=== PATIENT | female | born 1980 | race Caucasian/White ===

== ENCOUNTER 2018-05-21 12:07 | Outpatient (REF) | payer MEDICAID, SELFPAY ==
--- NOTE | 2018-05-21 11:45 | PAPFT_PTH ---
PATIENT: Jaquelin Castanon LOC: [facility] U#:[id number] AGE/SX: 37/F ROOM: RE05/21/[address]: Nahomy Azevedo APRN : 1980 BED: DIS: 05/21/2018 SPEC #: [id number] RECD: 05/22/18 13:00 STATUS: ROSEMARY REShira #: [id number] ALISON: 05/21/18 11:[address]: Nahomy Azevedo DEPT: [facility] Cytology RECD BY: Aurelia Doe Tissues: 1 - CX/ENDOCX FOR PAP SMEARS Procedures: PAP THIN PREP/UVM Screening HPV DNA PROBE Comments: [id number]
== END 2018-05-21 12:27 ==
LOC: LBN 12:07
PROVIDERS: PCP Nurse Practitioner Family; Visit Provider Nurse Practitioner Family
DX: Z12.4 Encounter for screening for malignant neoplasm of cervix (principal); Z11.51 Encounter for screening for human papillomavirus (HPV)
CPT/HCPCS: 88142; 87624

== ENCOUNTER 2018-06-04 01:35 | Outpatient (CLI) | payer MEDICAID, SELFPAY ==
[2018-06-04 09:15] LABS: Abs Immature Grans 0.01 k/cumm (0.0-0.09); Absolute Basophil Count 0.02 k/cumm (0.0-0.2); Absolute Eosinophil Count 0.11 k/cumm (0.0-0.7); Absolute Lymphocyte Count 2.65 k/cumm (1.2-3.4); Absolute Monocyte Count 0.51 k/cumm (0.11-0.7); Absolute Neutrophil Count 5.56 k/cumm (1.2-6.7); Basophils % 0.2; Eosinophils % 1.2; HCT 38.9 % (36.0-46.0); HGB 12.9 g/dL (12.0-15.5); Immature Grans % 0.1; Lymphocytes % 29.9; Mean Corp. HGB Concentration 33.2 g/dL (32.0-36.0); Mean Corpuscular Hemoglobin 30.3 pg (27.0-33.0); Mean Corpuscular Volume 91.3 fL (80-95); Mean Platelet Volume 11.3 fL (8.0-11.0); Monocytes % 5.8; Neutrophils % 62.8; Platelet Count 170 x1000/uL (130-400); RBC 4.26 m/cumm (4.00-5.20); RBC Distribution Width 13.2 % (11.7-14.6); White Blood Cell Count 8.86 k/cumm (4.4-10.8)
[2018-06-04 09:50] LABS: ALT 26 U/L (12-78); AST 14 U/L (15-37); Albumin 4.1 g/dL (3.4-5.0); Alkaline Phosphatase 62 U/L (46-116); Anion Gap 12.3 mmol/L (3-11); BUN 20 mg/dL (7-18); Bilirubin, Total 0.4 mg/dL (0.2-1.0); CO2 25.7 mmol/L (21.0-32.0); CREATININE 1.04 mg/dL (0.55-1.02); Chloride 103 mmol/L (98-107); Cholesterol 173 mg/dL (50-200); Glucose 114 mg/dL (70-100); HDL Cholesterol 41 mg/dL (40-60); LDL CHOLESTEROL 99 mg/dL (<100); Potassium 4.2 mmol/L (3.5-5.1); Sodium 141 mmol/L (136-145); TSH (W/Ref FT4) 1.37 uIU/mL (0.358-3.74); Total Protein 7.7 g/dL (6.4-8.2); Triglyceride 156 mg/dL (30-150)
== END 2018-06-04 01:55 ==
PROVIDERS: PCP Nurse Practitioner Family; Visit Provider Nurse Practitioner Family
DX: R53.83 Other fatigue (principal); Z13.220 Encounter for screening for lipoid disorders; Z13.1 Encounter for screening for diabetes mellitus; Z86.32 Personal history of gestational diabetes
CPT/HCPCS: 36415; 80053; 80061; 83721; 83036; 84443; 85025

== ENCOUNTER 2018-06-05 00:54 | Outpatient (CLI) | payer MEDICAID, SELFPAY ==
--- NOTE | 2018-06-05 13:52 | DI.COMBO_ITS ---
SYMPTOMS/DIAGNOSIS: RIGHT BREAST LUMP AT 6 O'CLOCK, H/O AUGMENTATION, N63.10 MAMMOGRAM AND RIGHT BREAST ULTRASOUND: Mammograms were interpreted according to the usual protocol including computer analysis with CAD system, tomosynthesis and C view imaging. Mammogram and right breast ultrasound are interpreted in conjunction. There are bilateral mammary implants and routine views and implant-displaced views were obtained. The breasts are of moderate density. No dominant mass or clumped microcalcification is seen. An area of questionable palpable abnormality of the supraareolar portion of the right breast was evaluated, as well as additional scanning of all four quadrants ultrasonographically. No mass or cyst identified. CONCLUSION: No specific evidence of malignancy at this time. Routine screening examinations are suggested at yearly intervals beginning at age 40 unless there is breast symptomatology in the intervening period. Category 1, breast density category B. MQSA ASSESSMENT OF FINDINGS: Negative. Category 1. Patient will receive a letter notifying them of these results. BI-RADS category B. There are scattered areas of fibroglandular density.
== END 2018-06-05 01:14 ==
PROVIDERS: PCP Nurse Practitioner Family; Visit Provider Nurse Practitioner Family
DX: N63.13 Unspecified lump in the right breast, lower outer quadrant (principal); Z98.82 Breast implant status
CPT/HCPCS: 76642; 77062; 77066; G0279

== ENCOUNTER 2018-07-25 12:08 | Outpatient (CLI) | payer MEDICAID, SELFPAY ==
--- NOTE | 2018-07-25 12:30 | DI.RAD_ITS ---
SYMPTOM/DIAGNOSIS: COUGH, LONG TIME SMOKER, NICOTINE DEPENDENT, F17.200, FAMILY H/O CANCERS PA AND LATERAL CHEST: The heart is normal in size. The lungs are clear. The mediastinal structures and pleura appear intact. CONCLUSION: Normal chest.
== END 2018-07-25 12:28 ==
PROVIDERS: PCP Nurse Practitioner Family; Visit Provider Student in an Organized Health Care Education/Training Program
DX: F17.200 Nicotine dependence, unspecified, uncomplicated (principal); R05 Cough; Z80.9 Family history of malignant neoplasm, unspecified
CPT/HCPCS: 71046

== ENCOUNTER 2019-05-06 16:49 | Outpatient (REF) | payer MEDICAID, SELFPAY ==
[2019-05-08 12:26] LABS: Chlamydia Result Negative (Negative); GC Result Negative (Negative)
== END 2019-05-06 17:09 ==
LOC: LBN 16:49
PROVIDERS: PCP Student in an Organized Health Care Education/Training Program; Visit Provider Nurse Practitioner Adult Health
DX: N89.8 Other specified noninflammatory disorders of vagina (principal); Z11.3 Encounter for screening for infections with a predominantly sexual mode of transmission
CPT/HCPCS: 87491; 87591; 87480; 87510; 87660

== ENCOUNTER 2019-10-07 12:06 | Outpatient (CLI) | payer MEDICAID, SELFPAY ==
[2019-10-09 18:14] LABS: SARS-CoV-2 RNA Undetected (Undetected); SARS-CoV-2 Specimen Source Nasopharynx
== END 2019-10-07 12:26 ==
PROVIDERS: PCP Student in an Organized Health Care Education/Training Program; Visit Provider Family Medicine
DX: R19.7 Diarrhea, unspecified (principal)
CPT/HCPCS: U0003

== ENCOUNTER 2020-01-09 08:46 | Outpatient (CLI) | payer MEDICAID, SELFPAY ==
[2020-01-14 03:19] LABS: Patient Race White; SARS-CoV-2 RNA Undetected (Undetected); SARS-CoV-2 Specimen Source Nasal
== END 2020-01-09 09:06 ==
PROVIDERS: PCP Student in an Organized Health Care Education/Training Program; Visit Provider Student in an Organized Health Care Education/Training Program
DX: R19.7 Diarrhea, unspecified (principal)
CPT/HCPCS: U0003

== ENCOUNTER 2020-02-03 08:47 | Outpatient (CLI) | payer MEDICAID, SELFPAY ==
[2020-02-04 18:05] LABS: Patient Race White; SARS-CoV-2 RNA Undetected (Undetected); SARS-CoV-2 Specimen Source Nasal
== END 2020-02-03 09:07 ==
PROVIDERS: PCP Student in an Organized Health Care Education/Training Program; Visit Provider Student in an Organized Health Care Education/Training Program
DX: Z11.59 Encounter for screening for other viral diseases (principal)
CPT/HCPCS: U0003

== ENCOUNTER 2020-04-07 08:30 | Outpatient (CLI) | payer MEDICAID, SELFPAY ==
[2020-04-08 12:55] LABS: COVID-19 RT-PCR UVMMC Result Negative (Negative)
== END 2020-04-07 08:50 ==
PROVIDERS: PCP Student in an Organized Health Care Education/Training Program; Visit Provider Student in an Organized Health Care Education/Training Program
DX: Z20.822 Contact with and (suspected) exposure to COVID-19 (principal)
CPT/HCPCS: U0003

== ENCOUNTER 2020-06-22 03:41 | Outpatient (CLI) | payer MEDICAID, SELFPAY ==
[2020-06-23 14:16] LABS: COVID-19 RT-PCR UVMMC Result Negative (Negative)
== END 2020-06-22 03:42 | disposition home or self-care (01) ==
LOC: LBO 03:41
PROVIDERS: PCP Student in an Organized Health Care Education/Training Program; Visit Provider Student in an Organized Health Care Education/Training Program
DX: Z20.822 Contact with and (suspected) exposure to COVID-19 (principal)
CPT/HCPCS: U0003

== ENCOUNTER 2020-06-24 02:25 | Outpatient (CLI) | payer MEDICAID, SELFPAY ==
--- NOTE | 2020-06-24 07:00 | DI.RAD_ITS ---
EXAM: XR CHEST 2V PA LATERAL CLINICAL HISTORY: cough,LOW RISK,R05. TECHNIQUE: 2D digital imaging was performed. COMPARISON: CR XR CHEST 2V PA LATERAL from 07/25/2018 FINDINGS: Heart size is normal. The mediastinum is not widened. Lungs are clear. No infiltrates nor pleural effusions. Breast implants noted IMPRESSION: No acute pulmonary findings. No significant change from July 2018. DATA REPOSITORY: RADIATION DOSE DELIVERED:
== END 2020-06-24 02:45 ==
PROVIDERS: PCP Student in an Organized Health Care Education/Training Program; Visit Provider Student in an Organized Health Care Education/Training Program
DX: R05 Cough (principal)
CPT/HCPCS: 71046

== ENCOUNTER 2020-10-08 04:24 | Outpatient (CLI) | payer MEDICAID, SELFPAY ==
[2020-10-08 08:51] LABS: HCT 38.8 % (36.0-46.0); MCH 30.8 pg (27.0-33.0); MCHC 33.5 % (32.0-36.0); MCV 91.9 fL (80-95); MPV 10.6 fL (8.0-11.0); Platelet Count 188 10^3/uL (130-400); RBC 4.22 10^6/uL (3.93-5.22); RDW 12.3 % (11.7-14.6); RDW-SD 41.8 fL; WBC 9.65 10^3/uL (4.4-10.8)
[2020-10-08 09:52] LABS: Anion Gap 9.6 mmol/L (3-11); BUN 19 mg/dL (7-18); CO2 27.4 mmol/L (21.0-32.0); CREATININE 1.1 mg/dL (0.55-1.02); Calculated LDL 113 mg/dL (<100); Chloride 104 mmol/L (98-107); Cholesterol 179 mg/dL (<200); Estimated GFR 55.89 (mL/min/1.73m2); Glucose 98 mg/dL (74-106); HDL Cholesterol 42 mg/dL (40-60); Potassium 4.2 mmol/L (3.5-5.1); Sodium 141 mmol/L (136-145); Triglyceride 122 mg/dL (<150)
== END 2020-10-08 04:25 | disposition home or self-care (01) ==
LOC: LBO 04:24
PROVIDERS: PCP Student in an Organized Health Care Education/Training Program; Visit Provider Student in an Organized Health Care Education/Training Program
DX: K21.9 Gastro-esophageal reflux disease without esophagitis (principal); Z13.220 Encounter for screening for lipoid disorders; R53.83 Other fatigue; Z86.2 Personal history of diseases of the blood and blood-forming organs and certain disorders involving the immune mechanism; Z86.32 Personal history of gestational diabetes
CPT/HCPCS: 36415; 80048; 80061; 85027

== ENCOUNTER → 2021-10-11 01:50 | Outpatient (CLI) | payer MEDICAID, SELFPAY ==
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
== END ==
PROVIDERS: PCP Student in an Organized Health Care Education/Training Program; Visit Provider Student in an Organized Health Care Education/Training Program
DX: M43.6 Torticollis (principal); R20.0 Anesthesia of skin; Z87.828 Personal history of other (healed) physical injury and trauma
CPT/HCPCS: 72052

== ENCOUNTER 2021-10-11 03:55 | Outpatient (CLI) | payer MEDICAID, SELFPAY ==
[2021-10-11 10:29] LABS: HGB 12.1 g/dL (11.2-15.7)
[2021-10-11 11:49] LABS: ALT 18 U/L (14-59); AST 12 U/L (15-37); Albumin 3.8 g/dL (3.4-5.0); Alkaline Phosphatase 63 U/L (46-116); Anion Gap 5.4 mmol/L (3-11); BUN 16 mg/dL (7-18); Bilirubin, Total 0.4 mg/dL (0.2-1.0); CO2 28.6 mmol/L (21.0-32.0); Calcium 8.8 mg/dL (8.5-10.1); Chloride 102 mmol/L (98-107); Glucose 102 mg/dL (74-106); Potassium 4.1 mmol/L (3.5-5.1); Sodium 136 mmol/L (136-145); Total Protein 7.8 g/dL (6.4-8.2)
== END 2021-10-11 03:56 | disposition home or self-care (01) ==
LOC: LBO 03:55
PROVIDERS: PCP Student in an Organized Health Care Education/Training Program; Visit Provider Student in an Organized Health Care Education/Training Program
DX: R53.83 Other fatigue (principal); N28.9 Disorder of kidney and ureter, unspecified; R20.0 Anesthesia of skin; I95.9 Hypotension, unspecified
CPT/HCPCS: 36415; 80053; 85018

== ENCOUNTER 2021-10-18 15:20 | Outpatient (REF) | payer MEDICAID, SELFPAY ==
--- NOTE | 2021-10-18 13:30 | PAPFT_PTH ---
PATIENT: Jaquelin Castanon LOC: [facility] U#:[id number] AGE/SX: 40/F ROOM: RE10/18/[address]: Corry Mitchell MD : 1980 BED: DIS: 10/18/2021 SPEC #: [id number] RECD: 10/19/21 13:14 STATUS: ROSEMARY REShira #: [id number] ALISON: 10/18/21 13:[address]: Corry Mitchell DEPT: [facility] Cytology RECD BY: Aurelia Doe ENTERED: 10/19/21 13:15 SP TYPE: PAPFT OTHR DR: Josie Aparicio, DO Tissues: 1 - CX/ENDOCX FOR PAP SMEARS Procedures: PAP THIN PREP/UVM Screening HPV DNA PROBE Comments: [id number] (CHLAMYDIA/GC)
[2021-10-20 13:40] LABS: Chlamydia Result Negative (Negative); GC Result Negative (Negative)
== END 2021-10-18 15:21 | disposition home or self-care (01) ==
LOC: LBN 15:20
PROVIDERS: PCP Student in an Organized Health Care Education/Training Program; Visit Provider Obstetrics & Gynecology
DX: Z12.4 Encounter for screening for malignant neoplasm of cervix (principal); Z11.51 Encounter for screening for human papillomavirus (HPV)
CPT/HCPCS: 87491; 87591; 88142; 87624

== ENCOUNTER → 2021-11-29 02:47 | Outpatient (CLI) | payer MEDICAID, SELFPAY ==
--- NOTE | 2021-11-29 07:00 | DI.US_ITS ---
Exam(s) US PELVIS TRANSVAGINAL EXAM: US PELVIS TRANSVAGINAL CLINICAL HISTORY: r/o ovarian cyst,h/o ovarian cyst,z87.42 TECHNIQUE: Transabdominal and transvaginal imaging was performed using standard protocol. COMPARISON: No exams were available for comparison FINDINGS: UTERUS: Anteverted. 7.1 x 4.1 x 4.7 cm. Endometrium: 6 millimeters. Myometrium: Unremarkable. Cervix: Unremarkable. OVARIES: Right: Cyst or mass: None. Left: Cyst or mass: Dominant follicle 1.5 cm maximal dimension. DOPPLER: Color: Symmetric and uniform flow to both ovaries. No hyperemia. Duplex: Normal ovarian arterial waveforms visualized. CUL-DE-SAC: Free fluid: Trace, physiologic. IMPRESSION: 1. Normal-appearing uterus with endometrial stripe within normal limits. 2. Unremarkable bilateral ovaries. DATA REPOSITORY:
== END ==
PROVIDERS: PCP Student in an Organized Health Care Education/Training Program; Visit Provider Obstetrics & Gynecology
DX: Z87.42 Personal history of other diseases of the female genital tract (principal)
CPT/HCPCS: 76830; 76856

== ENCOUNTER 2021-11-29 03:19 | Outpatient (CLI) | payer MEDICAID, SELFPAY ==
[2021-11-30 09:17] LABS: HBs Antibody, Qual Positive (See Note); HBs Antibody, Quant 149.4 mIU/mL (See Note); Hepatitis B Core Antibody Negative (Negative); Hepatitis B surface Ag Negative (Negative); Hepatitis C Ab w Rflx HCV PCR Negative (Negative)
[2021-11-30 09:30] LABS: HIV-1/2 Ag & Ab Screen Negative (Negative)
[2021-11-30 13:41] LABS: Syphilis Serology (RPR) Negative (Negative)
== END 2021-11-29 03:20 | disposition home or self-care (01) ==
LOC: LBO 03:19
PROVIDERS: PCP Student in an Organized Health Care Education/Training Program; Visit Provider Obstetrics & Gynecology
DX: Z11.3 Encounter for screening for infections with a predominantly sexual mode of transmission (principal); Z11.59 Encounter for screening for other viral diseases; Z11.4 Encounter for screening for human immunodeficiency virus [HIV]
CPT/HCPCS: 36415; 86704; 86706; 86803; 87340; 87389; 86592

== ENCOUNTER → 2022-02-15 10:05 | Outpatient (CLI) | payer MEDICAID, SELFPAY ==
--- NOTE | 2022-02-15 09:00 | DI.RAD_ITS ---
Exam(s) XR CHEST 2V PA LATERAL EXAM: XR CHEST 2V PA LATERAL CLINICAL HISTORY: bronchitis, ? rul pneumonia, j40 TECHNIQUE: 2D digital imaging was performed of the chest. Two images were obtained. PA and lateral views were obtained. COMPARISON: CR XR CHEST 2V PA LATERAL from 06/24/2020 FINDINGS: MEDIASTINUM: Normal. HEART: Normal. PULMONARY VASCULATURE: Normal. LUNGS: Clear. PLEURAL SPACE: No pleural effusion or pneumothorax. BONE:Within normal limits for the patient's age. OTHER FINDINGS:Normal. IMPRESSION: No acute pulmonary findings. DATA REPOSITORY: RADIATION DOSE DELIVERED:
== END ==
PROVIDERS: PCP Student in an Organized Health Care Education/Training Program; Visit Provider Family Medicine
DX: J40 Bronchitis, not specified as acute or chronic (principal)
CPT/HCPCS: 71046

== ENCOUNTER 2022-04-20 03:07 | Outpatient (CLI) | payer MEDICAID, SELFPAY ==
--- NOTE | 2022-04-20 07:00 | DI.US_ITS ---
Exam(s) US BREAST RT LIMITED MG MAMMO DIAGNOSTIC BI EXAM: MG MAMMO DIAGNOSTIC BI and U/S breast RT limited CLINICAL HISTORY: right breast lump 3:00, 6:00,IMPLANTS,N63.0. TECHNIQUE: Craniocaudal and mediolateral oblique Full Field Digital Mammography views with Computer Aided Diagnosis followed by Tomosynthesis and right breast ultrasound. COMPARISON: Comparison is made with prior examinations. FINDINGS: Mammography/Tomosynthesis: The patient has bilateral breast implants which appear unremarkable. Masses/Architectural Distortion: None seen. Microcalcifictions: No suspicious pleomorphic-type are seen. Skin Thickening/Nipple Retraction: None. Limited right breast US: The 3 o'clock and 6 o'clock areas of the right breast were evaluated sonogra phically. Echotexture: Normal appearance of the glandular tissue. Shadowing: No suspicious foci. Cyst: None. Solid lesions: None seen. Ductal dilation: None. IMPRESSION: 1. No evidence of malignancy is noted. 2. Unless there is more urgent need, follow-up screening mammography is recommended, as per [place] [employer] guidelines. 3. The findings were discussed with the patient on the date of the examination. BI-RADS Category 1 - Negative Breast Density - Category B - Scattered areas of fibroglandular density Breast density Category C or D implies that the patient has dense breast tissue. Dense breast tissue can make it harder to find cancer on a mammogram. Dense breast tissue is also associated with an incr eased risk of breast cancer. This information about the result of the mammogram report was provided to the patient to raise their awareness. Use this report when you speak with the patient about their risks for breast cancer, which includes their family history. At that time, you may recommend additional screening tests (Ultrasoun d or MRI) as these tests may add significant information. A negative radiographic report should not delay biopsy if a dominant or clinically suspicious mass is present. Up to ten percent of cancers are not identified on mammography. A negative report may reinforce clinical impression. Adenosis and dense breasts may obscure an underlying neoplasm. False positive reports average 6 to 10%. Patient will receive a letter notifying them of these results.
== END 2022-04-20 03:27 ==
LOC: DI 03:07
PROVIDERS: PCP Student in an Organized Health Care Education/Training Program; Visit Provider Nurse Practitioner
DX: R92.8 Other abnormal and inconclusive findings on diagnostic imaging of breast (principal); Z98.82 Breast implant status
CPT/HCPCS: 76642; 77062; 77066; G0279

== ENCOUNTER 2022-08-16 02:43 | Outpatient (CLI) | payer MEDICAID, SELFPAY ==
--- NOTE | 2022-08-16 07:30 | DI.RAD_ITS ---
Exam(s) XR CERVICAL SP COMP W FLEX/EXT EXAM: XR CERVICAL SP COMP W FLEX/EXT CLINICAL HISTORY: evaluate lordosis, vert, pain with extension.stiffnes,m25.69,m54.2. TECHNIQUE: 2D digital imaging was performed. Eight images were obtained. AP, odontoid, lateral, flex ion, extension and bilateral oblique images were obtained. COMPARISON: CR XR CERVICAL SP COMP W FLEX/EXT from 10/11/2021 FINDINGS: The patient was unable to remove the airing site. The odontoid is intact. The lateral masses are well aligned. There has been no change in the alignme nt of the cervical spine. There is 3 mm anterolisthesis of C3 on C4. There is 2 mm anterolisthesis of C4 on C5. There has been no significant change with flexion. There is normal alignment upon exte nsion. The vertebral bodies, disc spaces and posterior elements are well maintained. No acute fract ure or subluxation is present. No significant neural foraminal stenosis is present. The cervical tho racic junction is well maintained. The prevertebral soft tissues are unremarkable. Lung apices are c lear. IMPRESSION: 1. Stable alignment of the cervical spine with anterolisthesis of C3 on C4 and C4 on C5. 2. No acute abnormality. DATA REPOSITORY: RADIATION DOSE DELIVERED:
== END 2022-08-16 03:03 ==
LOC: DI 02:43
PROVIDERS: PCP Student in an Organized Health Care Education/Training Program; Visit Provider Student in an Organized Health Care Education/Training Program
DX: M25.69 Stiffness of other specified joint, not elsewhere classified (principal); M54.2 Cervicalgia
CPT/HCPCS: 36415; 80048; 82306; 72052; 82040; 83036; 83735; 84443; 85025

== ENCOUNTER 2022-08-16 14:17 | Outpatient (CLI) | payer MEDICAID, SELFPAY ==
[2022-08-16 13:57] LABS: Abs Immature Grans 0.03 10^3/uL (0.0-0.06); Absolute Basophil Count 0.03 10^3/uL (0.0-0.2); Absolute Lymphocyte Count 1.96 10^3/uL (1.2-3.4); Absolute Neutrophil Count 7.08 10^3/uL (1.2-6.7); Basophils % 0.3; HCT 40.1 % (36.0-46.0); Immature Grans % 0.3; Lymphocytes % 19.8; MCH 30.1 pg (27.0-33.0); MCHC 32.4 % (32.0-36.0); MCV 93 fL (80-95); MPV 10.4 fL (8.0-11.0); Monocytes % 7.1; Neutrophils % 71.5; Platelet Count 201 10^3/uL (130-400); RBC 4.32 10^6/uL (3.93-5.22); RDW 13.2 % (11.7-14.6)
[2022-08-16 14:19] LABS: Albumin 4.2 g/dL (3.4-5.0)
[2022-08-16 14:24] LABS: Hemoglobin A1C 5.8 % (<5.7)
[2022-08-16 14:32] LABS: Anion Gap 6.7 mmol/L (3-11); BUN 16 mg/dL (7-18); CO2 31.3 mmol/L (21.0-32.0); Calcium 9.5 mg/dL (8.5-10.1); Chloride 103 mmol/L (98-107); Estimated GFR 73.49 (mL/min/1.73m2); Glucose 96 mg/dL (74-106); Magnesium 1.9 mg/dL (1.8-2.4); Potassium 4.2 mmol/L (3.5-5.1); Sodium 141 mmol/L (136-145); TSH (W/Ref FT4) 1.34 uIU/mL (0.36-3.74)
[2022-08-16 14:47] LABS: Vitamin D 25 Total 47.6 ng/mL (30-100)
== END 2022-08-16 14:18 | disposition home or self-care (01) ==
LOC: LBO 14:18
PROVIDERS: PCP Student in an Organized Health Care Education/Training Program; Visit Provider Student in an Organized Health Care Education/Training Program
DX: R73.09 Other abnormal glucose (principal); E46 Unspecified protein-calorie malnutrition; R55 Syncope and collapse; M32.9 Systemic lupus erythematosus, unspecified; J40 Bronchitis, not specified as acute or chronic; Z79.899 Other long term (current) drug therapy
CPT/HCPCS: 36415; 80048; 82306; 82040; 83036; 83735; 84443; 85025

== ENCOUNTER 2022-08-31 14:32 | Outpatient (CLI) | payer MEDICAID, SELFPAY ==
[2022-08-31 15:15] LABS: Calculated LDL 114 mg/dL (<100); Cholesterol 180 mg/dL (<200); HDL Cholesterol 54 mg/dL (40-60); Triglyceride 62 mg/dL (<150)
== END 2022-08-31 14:33 | disposition home or self-care (01) ==
LOC: LBO 14:33
PROVIDERS: PCP Student in an Organized Health Care Education/Training Program; Visit Provider Student in an Organized Health Care Education/Training Program
DX: R55 Syncope and collapse (principal); F32.89 Other specified depressive episodes; E78.89 Other lipoprotein metabolism disorders; Z82.3 Family history of stroke
CPT/HCPCS: 36415; 80061

== ENCOUNTER 2022-09-05 02:41 | Outpatient (CLI) | payer MEDICAID, SELFPAY ==
--- NOTE | 2022-09-05 08:00 | DI.US_ITS ---
Exam(s) US CAROTID EXAM: US CAROTID CLINICAL HISTORY: near syncope,family h/o stroke,evaluate plaque and stenosis,z82.3,r55. TECHNIQUE: Ultrasound carotids performed using grayscale, color-flow, and spectral Doppler imaging. COMPARISON: No exams were available for comparison FINDINGS: RIGHT CAROTID ARTERY: Plaque: None seen. Velocity elevation: None. LEFT CAROTID ARTERY: Plaque: None seen. Velocity elevation: None. VERTEBRAL ARTERIES: Antegrade flow. Measurements: R Bulb: 42.4cm/s PS / 10.2cm/s ED R CCA: 91.3cm/s PS / 34.1cm/s ED R ECA: 91cm/s PS / 17.3cm/s ED R ICA Prox: 81.5cm/s PS / 26.8cm/s ED R ICA Mid: 82.7cm/s PS / 38.7cm/s ED R ICA Distal: 97.9cm/s PS /49.3cm/s ED R Vert: 54.7cm/s PS / 20.7cm/s ED R SVR: 1.1 R DVR: 1.4 L Bulb: 73.5cm/s PS / 33.6cm/s ED L CCA: 75.8cm/s PS / 26.5cm/s ED L ECA: 86.4cm/s PS / 20.7cm/s ED L ICA Prox: 73.5cm/s PS / 27.7cm/s ED L ICA Mid: 75.8cm/s PS / 28.9cm/s ED L ICA Distal: 88.4cm/s PS / 41.6cm/s ED L Vert: 56.2cm/s PS / 20.3cm/s ED L SVR: 1.2 L DVR: 1.6 IMPRESSION: No evidence for hemodynamically significant carotid stenosis. Criteria for Carotid Stenosis: Normal: ICA PSV <125 cm/s no plaque or intimal thickening is visible. <50% stenosis: ICA PSV <125 cm/s and plaque or intimal thickening is visible. 50-69% stenosis: ICA PSV is 125-250 cm/s and plaque is visible. >70% stenosis to near occlusion: ICA PSV >250 cm/s with visible plaque and luminal narrowing. DATA REPOSITORY:
== END 2022-09-05 03:01 ==
LOC: DI 02:42
PROVIDERS: PCP Student in an Organized Health Care Education/Training Program; Visit Provider Student in an Organized Health Care Education/Training Program
DX: R55 Syncope and collapse (principal); Z82.3 Family history of stroke
CPT/HCPCS: 93880

== ENCOUNTER 2023-01-18 18:26 | Outpatient (CLI) | payer MEDICAID, SELFPAY | END 2023-01-18 18:27 | disposition home or self-care (01) | LOC: DI.KIM 18:30 | PROVIDERS: PCP Student in an Organized Health Care Education/Training Program; Visit Provider Student in an Organized Health Care Education/Training Program | DX: I10 Essential (primary) hypertension (principal); R55 Syncope and collapse | CPT/HCPCS: 93010 ==

== ENCOUNTER 2023-02-12 16:21 | Emergency (ER) | payer MEDICAID, SELFPAY ==
[2023-02-12 16:23] VITALS: BP 170/100; PULSE 88; RESP 16; TEMP 37; O2SAT 100
[2023-02-12 16:26] VITALS: RESP 25
[2023-02-12] MEDS: hydrOXYzine HCL 50 MG TAB PO (17:08)
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
== END 2023-02-12 17:47 | disposition home or self-care (01) ==
PROVIDERS: Emergency Provider Nurse Practitioner Acute Care; PCP Student in an Organized Health Care Education/Training Program
DX: F41.9 Anxiety disorder, unspecified (principal)
CPT/HCPCS: 99283; 99284; J3490